=== PATIENT | female | born 1930 | race Caucasian/White ===

== ENCOUNTER 2016-11-01 23:01 | Inpatient (IN) | payer OTHER ==
[2016-11-01] MEDS ORDERED: NS 1,000 ML IV ONE (23:08)
[2016-11-01] MEDS ORDERED: NS 500 ML IV ONE (23:14)
--- NOTE | 2016-11-01 23:27 | PROVIDER DOCUMENTATION ---
HPI-Syncope/Dizziness - General Chief Complaint: Syncope Stated Complaint: syncope Time Seen by Provider: 11/01/16 23:07 Source: patient, EMS Allergies/Adverse Reactions: Patient Allergies Allergy/AdvReac Type Severity Reaction Status Date / Time No Known Allergies Allergy Verified 11/01/16 23:14 Home Medications: [place]-3 Fatty Acids [Fish Oil] 2 DAILY 01/24/13 Aspirin 81 mg PO DAILY 12/25/13 Donepezil HCl 10 mg PO BID 11/01/16 Escitalopram [Lexapro] 10 mg PO DAILY 11/01/16 Losartan/Hctz [Hyzaar 50/12.5 mg] 1 each PO BID 11/01/16 Meloxicam 7.5 mg PO DAILY 11/01/16 Memantine HCl [Namenda Xr] 28 mg PO DAILY 11/01/16 - History of Present Illness-Syncope/Dizzy Nature of Presenting Problem: 86 yo F presents to ER via EMS after a syncopal episode prior to arrival. Pt states she passed out after using the bathroom [employer]. EMS states she vomited once. Pt states she feels fine now, denies pain and wants to go home. Onset/Duration: reports: just prior to arrival Timing: reports: gone now Location of injury. (If syncope resulted in an injury.): reports: none Current Symptoms: reports: none/feels normal Review of Systems - Adult - REVIEW OF SYSTEMS - ADULT Constitutional: denies: chills, fever Eyes: reports: no symptoms reported Ears, Nose, Mouth & Throat: reports: no symptoms reported Cardiovascular: denies: chest pain, palpitations Respiratory: denies: cough, shortness of breath Gastrointestinal: reports: no symptoms reported Genitourinary: reports: no symptoms reported Musculoskeletal: reports: no symptoms reported Integumentary: reports: no symptoms reported Neurological: reports: syncope. denies: slurred speech Psychiatric: reports: no symptoms reported Endocrine: reports: no symptoms reported Hematologic/Lymphatic: reports: no symptoms reported Allergic/Immunologic: reports: no symptoms reported All Other Systems: Reviewed and Negative Past History - Adult - PAST MEDICAL HISTORY-ADULT Review of Records: reports: Old Records Reviewed, Nursing Assessment Review, Medications Reviewed - IMMUNIZATION STATUS Childhood Immunizations: See Nurse Assessment Flu Vaccine: See Nurse Assessment Physical Exam-General - PHYSICAL EXAM-ADULT Initial Vital Signs Reviewed: Yes - CONSTITUTIONAL General Appearance: appears well, alert - EYES Eyes: PERRL/EOMI, pink conjunctivae - HEAD, EARS, NOSE, MOUTH & THROAT HENMT: normocephalic/atraumatic, moist mucous membranes - NECK Neck: non-tender, full range of motion - RESPIRATORY Respiratory: chest non-tender, lungs clear - CARDIOVASCULAR Cardiovascular: normal peripheral pulses, regular rate, rhythm - MUSCULOSKELETAL Extremity: normal range of motion, normal gait Progress - PLAN OF CARE/RESULTS Progress/Plan/Lab Results: Laboratory Tests 11/01/16 11/01/16 11/01/16 23:45 23:45 23:45 WBC 14.41 H RBC 3.97 L Hgb 12.4 Hct 38.9 MCV 98.0 MCH 31.2 H MCHC 31.9 L RDW Std Deviation 13.2 Plt Count 295 MPV 9.8 Immature Gran % (Auto) 0.3 Neut % (Auto) 87.3 H Lymph % (Auto) 4.1 L [place] % (Auto) 8.0 Eos % (Auto) 0.2 Baso % (Auto) 0.1 Immature Gran # (Auto) 0.04 Neut # (Auto) 12.59 H Lymph # (Auto) 0.59 L [place] # (Auto) 1.15 H Eos # (Auto) 0.03 Baso # (Auto) 0.01 Sodium 135 L Potassium 4.5 Chloride 98 Carbon Dioxide 27 Anion Gap 10 BUN 38 H Creatinine 1.4 H Estimated GFR/1.73 m2 36 BUN/Creatinine Ratio 27 Glucose 169 H Calculated Osmolality 283 Calcium 9.3 Magnesium 1.8 Total Bilirubin 0.50 AST 16 ALT 12 Alkaline Phosphatase 89 Troponin T Total Protein 7.6 Albumin 4.2 Globulin 3.0 Albumin/Globulin Ratio 1.0 Lipase 11/01/16 11/01/16 23:45 23:45 WBC RBC Hgb Hct MCV MCH MCHC RDW Std Deviation Plt Count MPV Immature Gran % (Auto) Neut % (Auto) Lymph % (Auto) [place] % (Auto) Eos % (Auto) Baso % (Auto) Immature Gran # (Auto) Neut # (Auto) Lymph # (Auto) [place] # (Auto) Eos # (Auto) Baso # (Auto) Sodium Potassium Chloride Carbon Dioxide Anion Gap BUN Creatinine Estimated GFR/1.73 m2 BUN/Creatinine Ratio Glucose Calculated Osmolality Calcium Magnesium Total Bilirubin AST ALT Alkaline Phosphatase Troponin T < 0.010 Total Protein Albumin Globulin Albumin/Globulin Ratio Lipase 607 H Orders Category Date Time Status ABDOMEN/PELVIS W/O CONTRAST [CT] Stat Exams 11/02/16 00:43 Taken CBC WITH ELECTRONIC DIFF [HEME] Stat Lab 11/01/16 23:45 Completed CMP [COMPREHENSIVE METABOLIC PANEL] [CHEM] Stat Lab 11/01/16 23:45 Completed LIPASE [CHEM] Stat Lab 11/01/16 23:45 Completed MAGNESIUM [CHEM] Stat Lab 11/01/16 23:45 Completed TROPONIN T Stat Lab 11/01/16 23:45 Completed 0.9% Sodium Chloride Inj [Ns] 1,000 ml Med 11/01/16 23:08 Discontinued IV 999 mls/hr 0.9% Sodium Chloride Inj [Ns] 500 ml Med 11/01/16 23:14 Discontinued IV 999 mls/hr Ondansetron [Zofran] Med 11/02/16 00:47 Discontinued 4 mg IV NOW ONE EKG [EKG] Stat Ther 11/02/16 01:32 Ordered Vital Signs Temp Pulse Resp BP Pulse Ox 11/02/16 01:46 61 16 125/62 96 11/02/16 01:31 68 23 146/79 11/01/16 23:04 98 F 62 18 135/052 95 No Known Allergies Allergy (Verified 11/01/16 23:14) [place]-3 Fatty Acids [Fish Oil] 2 DAILY 01/24/13 Metoprolol Succinate E.r. [Toprol Xl] 50 mg PO DAILY #0 tablet 01/26/13 SIMVAstatin [Zocor] 40 mg PO DAILY #0 tablet 01/26/13 Aspirin 81 mg PO DAILY 12/25/13 Donepezil HCl 10 mg PO BID 11/01/16 Escitalopram [Lexapro] 10 mg PO DAILY 11/01/16 Losartan/Hctz [Hyzaar 50/12.5 mg] 1 each PO BID 11/01/16 Meloxicam 7.5 mg PO DAILY 11/01/16 Memantine HCl [Namenda Xr] 28 mg PO DAILY 11/01/16 Laboratory 11/01/16 11/01/16 11/01/16 23:45 23:45 23:45 WBC RBC Hgb Hct MCV MCH MCHC RDW Std Deviation Plt Count MPV Immature Gran % (Auto) Neut % (Auto) Lymph % (Auto) [place] % (Auto) Eos % (Auto) Baso % (Auto) Immature Gran # (Auto) Neut # (Auto) Lymph # (Auto) [place] # (Auto) Eos # (Auto) Baso # (Auto) Sodium Potassium Chloride Carbon Dioxide Anion Gap BUN Creatinine Estimated GFR/1.73 m2 BUN/Creatinine Ratio Glucose Calculated Osmolality Calcium Magnesium 1.8 Total Bilirubin AST ALT Alkaline Phosphatase Troponin T < 0.010 Total Protein Albumin Globulin Albumin/Globulin Ratio Lipase 607 H 11/01/16 11/01/16 23:45 23:45 WBC 14.41 H RBC 3.97 L Hgb 12.4 Hct 38.9 MCV 98.0 MCH 31.2 H MCHC 31.9 L RDW Std Deviation 13.2 Plt Count 295 MPV 9.8 Immature Gran % (Auto) 0.3 Neut % (Auto) 87.3 H Lymph % (Auto) 4.1 L [place] % (Auto) 8.0 Eos % (Auto) 0.2 Baso % (Auto) 0.1 Immature Gran # (Auto) 0.04 Neut # (Auto) 12.59 H Lymph # (Auto) 0.59 L [place] # (Auto) 1.15 H Eos # (Auto) 0.03 Baso # (Auto) 0.01 Sodium 135 L Potassium 4.5 Chloride 98 Carbon Dioxide 27 Anion Gap 10 BUN 38 H Creatinine 1.4 H Estimated GFR/1.73 m2 36 BUN/Creatinine Ratio 27 Glucose 169 H Calculated Osmolality 283 Calcium 9.3 Magnesium Total Bilirubin 0.50 AST 16 ALT 12 Alkaline Phosphatase 89 Troponin T Total Protein 7.6 Albumin 4.2 Globulin 3.0 Albumin/Globulin Ratio 1.0 Lipase - EKG 1 Time of EKG reading by physician:: 01:25 EKG Read and Signed by:: Bertrand Flowers EKG Interpretation (*Must complete 3 of following elements*): Abnormal Rate: 62 Rhythm: NSR [place]: left QRS: LBB CT Interval: normal ST Wave: normal Comments: abnormal - CT/MRI 1 CT Study: Abdomen, Pelvis Impression: Abnormal CT Results: minor diverticulitis in the lower left colon - CONSULTS/PCP/HOSPITALIST Notification #1 *Consult/PCP/Hospitalist*: Dr. Crawford Time Discussed: 02:08 Reason/Comments: call to admit Consult Disposition: Admit Departure - Departure Time of Disposition Order: 02:05 DIAGNOSIS: Acute diverticulitis Acute pancreatitis Qualifiers: Pancreatitis type: unspecified pancreatitis type Acute pancreatitis complication: unspecified Qualified Code(s): K85.90 - Acute pancreatitis without necrosis or infection, unspecified Disposition: ADMITTED INPATIENT 09 Certified Medical Emergency: Emergent Condition: Good Referrals: Gomez Guzman, [Primary Care Provider] - Attestation - Scribe Verification/Attestation Scribe:: Honorio Esparza Acting as Scribe for:: Bertrand Flowers Scribe documention review:: This chart was documented by a scribe and accurately reflects the service the provider performed and the decisions made by the provider.
[2016-11-02 00:15] LABS: BASO% 0.1 % (0.0-0.8); EOS# 0.03 X1000 (0.0-0.7); EOS% 0.2 % (0.0-10.0); HEMATOCRIT 38.9 % (37.0-47.0); HEMOGLOBIN 12.4 g/dL (12.0-16.0); IMM GRAN# 0.04 X1000 (0.0-0.04); IMM GRAN% 0.3 % (0.0-0.5); LYMPH# 0.59 X1000 (1.2-3.4); LYMPH% 4.1 % (20.5-51.1); MANUAL DIFF NEEDED? NO; MCH 31.2 PG (27-31); MCHC 31.9 g/dL (33-37); MONO# 1.15 X1000 (0.11-0.59); MPV 9.8 FL (7.4-10.4); NEUT% 87.3 % (42.2-75.2); PLT 295 X1000 (130-400); RBC 3.97 XMIL (4.2-5.4)
[2016-11-02 00:18] LABS: ALBUMIN 4.2 g/dL (3.5-5.0); CALCIUM 9.3 mg/dL (8.8-10.2); POTASSIUM 4.5 mmol/L (3.5-5.1); TOTAL BILIRUBIN 0.5 mg/dL (0.20-1.00); TOTAL PROTEIN 7.6 g/dL (6.3-8.3)
[2016-11-02] MEDS ORDERED: ZOFRAN IV ONE (00:47)
[2016-11-02] MEDS ORDERED: LEVAQUIN 750 MG/D5W 150 ML IV ONE (02:22)
[2016-11-02] MEDS ORDERED: FLAGYL 500 MG/NS 100 ML IV SCH (02:30)
[2016-11-02] MEDS ORDERED: MORPHINE IV PRN (02:32)
[2016-11-02] MEDS ORDERED: PHENERGAN IV PRN (02:34)
[2016-11-02] MEDS ORDERED: SODIUM CHLORIDE 0.9% INJ ONE (02:34)
[2016-11-02] MEDS ORDERED: COMPAZINE IV PRN (02:45)
[2016-11-02] MEDS: NS 1,000 ML IV SCH ×2 (04:15→19:51)
[2016-11-02 07:06] LABS: BASO% 0.1 % (0.0-0.8); HEMATOCRIT 36.6 % (37.0-47.0); HEMOGLOBIN 11.4 g/dL (12.0-16.0); IMM GRAN# 0.03 X1000 (0.0-0.04); IMM GRAN% 0.3 % (0.0-0.5); LYMPH# 0.23 X1000 (1.2-3.4); LYMPH% 2.4 % (20.5-51.1); MANUAL DIFF NEEDED? NO; MCH 30.6 PG (27-31); MCHC 31.1 g/dL (33-37); MCV 98.4 FL (81-99); MONO# 0.42 X1000 (0.11-0.59); MONO% 4.3 % (1.7-9.3); MPV 9.8 FL (7.4-10.4); NEUT% 92.9 % (42.2-75.2); PLT 239 X1000 (130-400); RBC 3.72 XMIL (4.2-5.4)
[2016-11-02 07:13] LABS: ALBUMIN 3.4 g/dL (3.5-5.0); CALCIUM 8.3 mg/dL (8.8-10.2); TOTAL BILIRUBIN 0.5 mg/dL (0.20-1.00); TOTAL PROTEIN 6.5 g/dL (6.3-8.3)
[2016-11-02 07:41] LABS: URINE SOURCE CATH
[2016-11-02 07:58] LABS: BILIRUBIN URINE NEGATIVE (NEGATIVE); BLOOD URINE TRACE (NEGATIVE); CLARITY CLEAR (CLEAR); COLOR YELLOW; GLUCOSE URINE NEGATIVE (NEGATIVE); LEUKOCYTES URINE 2+ (NEGATIVE); NITRITE URINE NEGATIVE (NEGATIVE); PROTEIN URINE TRACE mg/dL (NEGATIVE); SP GRAVITY URINE 1.015; UROBILINOGEN URINE NORMAL
[2016-11-02 07:59] LABS: URINE CULTURE PL NEEDED? YES; URINE EPITHELIAL CELLS <10 /HPF (<10); URINE RBC <10 /HPF (<10)
[2016-11-02] MEDS ORDERED: COZAAR PO SCH (09:00)
[2016-11-02] MEDS ORDERED: HYDROCHLOROTHIAZIDE PO SCH (09:00)
--- NOTE | 2016-11-02 09:33 | HISTORY AND PHYSICAL ---
CHIEF COMPLAINT: She was in the bathroom feeling nauseated and began to vomit and passed out. The daughter was in the bathroom with her and caught her before she made it to the floor. HISTORY OF PRESENTING ILLNESS: This is an 86-year-old female who presents to [facility] after she was complaining of some nausea with vomiting. Apparently, had went to the bathroom to throw up. The daughter was by her side. When she went to throw up, her knees buckled and she was passing out, and the daughter caught her and brought her to the emergency room for evaluation. Once she arrived, she stated she was feeling better. Laboratory data showed a white blood cell count of 14.41. Lipase was 607. Urinalysis showed 2+ white blood cells and 4+ bacteria. CT of the abdomen was done and per ER physician documentation showed some minor diverticulitis in the lower left colon. She was admitted for further evaluation and treatment. PAST MEDICAL HISTORY: Hypertension, dementia, hyperlipidemia, coronary artery disease. PAST SURGICAL HISTORY: CABG and pacemaker placement. FAMILY HISTORY: Noncontributory. SOCIAL HISTORY: She currently resides at [place]. Denies any tobacco, alcohol, or illicit drug use. ALLERGIES: She has no known drug allergies. HOME MEDICATIONS: She takes aspirin 81 mg p.o. daily, Donepezil 10 mg p.o. b.i.d., Lexapro 10 mg p.o. daily, losartan/hydrochlorothiazide 50/12.5 p.o. b.i.d., meloxicam 7.5 mg p.o. daily will be held, Namenda XR 28 mg p.o. daily, metoprolol 50 mg p.o. daily, fish oil 500 mg 2 p.o. daily will be held, Zocor 40 mg p.o. daily. LABORATORY DATA: Showed a white blood cell count of 14.41, hemoglobin 12.4, hematocrit 38.9, platelets 295,000. Sodium 135, potassium 4.5, chloride 98, CO2 27, BUN of 38, creatinine of 1.4 which is at her baseline with some underlying chronic kidney disease, glucose 169. Lipase 607. Urinalysis showed negative nitrites but 2+ white blood cells and 4+ bacteria. CT of the abdomen and pelvis per ER physician documentation showed minor diverticulitis in the left lower colon. REVIEW OF SYSTEMS: She denied any fever, chills, blurred vision, dizziness, chest pain, coughing, shortness of breath. She had some mild abdominal discomfort. There was generalized nausea, vomiting. Denied any constipation or diarrhea, burning or hurting with urination. PHYSICAL EXAMINATION: VITAL SIGNS: On arrival, she had a temperature of 98 degrees, pulse 62, respirations 18, blood pressure 135/52, saturating 95% on room air. GENERAL: This is an 86-year-old, female who is lying in the bed and answers questions appropriately. HEENT: Normocephalic and atraumatic. Pupils are equal, round, and reactive to light. The extraocular movements are intact. The oropharynx and nares are clear. NECK: Supple. LUNGS: Clear to auscultation bilaterally with equal lung expansion and chest wall movement. HEART: With regular rate and rhythm. No murmurs, rubs, or gallops. ABDOMEN: Soft, nontender, nondistended. Bowel sounds were present x4 quadrants. EXTREMITIES: No clubbing, cyanosis, or edema. NEUROLOGICAL: The cranial nerves 2-12 are grossly intact. ASSESSMENT: 1. Diverticulitis. 2. Syncope. 3. Urinary tract infection. 4. Pancreatitis. PLAN: She was admitted to the medical unit at [facility]. Placed on NPO status initially but it is noted this morning that her lipase is down to 111 so we will give her a healthy heart diet this morning and see how she tolerates it. We will check an echocardiogram and a carotid ultrasound. Urine culture is pending. We will continue her Levaquin 750 mg IV q.24, Flagyl 500 mg IV q.8. Continue her home medicines as previously identified. Morphine 2 mg IV q.2 hours p.r.n. and normal saline at 100 mL an hour. Will recheck a CBC and a BMP in the a.m. Dictated by JANET Jc for Hayden Munoz MD will check ruq us in am amd if stable dc on oral abx for 10-14 days otherwise agree with above, i have examined the pt APENOT MTDD
[2016-11-02] MEDS: ARICEPT PO SCH ×2 (09:56→20:03)
[2016-11-02] MEDS: NAMENDA XR PO SCH (09:57)
[2016-11-02] MEDS: LEXAPRO PO SCH (09:57)
[2016-11-02] MEDS: TOPROL XL PO SCH (09:57)
[2016-11-02] MEDS: FLAGYL 500 MG/NS 100 ML IV SCH ×2 (11:56→19:50)
--- NOTE | 2016-11-02 12:33 | Diag Imaging Result Document ---
PROCEDURE NAME: ABDOMEN/PELVIS W/O CONTRAST - 11/02/2016 CT ABDOMEN AND PELVIS WITHOUT CONTRAST: COMPARISON: None available. FINDINGS: There is subsegmental atelectasis and/or scarring at the lung bases. There is cardiomegaly. There is a small hiatal hernia. The kidneys are grossly unremarkable. There is no hydronephrosis. The pancreas is grossly unremarkable. No discrete peripancreatic inflammatory changes are identified. The gallbladder is grossly unremarkable. There is diverticulosis coli with focal mild inflammatory changes emanating from a short segment of the proximal sigmoid colon where there are multiple diverticula. This is consistent with mild acute diverticulitis. There is no discrete abscess or free air to indicate perforation. There are fluid-filled loops of small bowel throughout the abdomen with only mild distention. They are nonspecific but are probably related to ileus. There is a calcification involving the uterine wall suggesting a likely small fibroid. The remainder of the solid viscera of the abdomen and pelvis and the remainder of the GI tract is essentially unremarkable. There is aortic atherosclerotic calcification but no evidence of aneurysm. IMPRESSION: 1. Findings consistent with mild sigmoid colonic diverticulitis with no sign of perforation at this time. 2. Fluid-filled loops of small bowel that are mildly distended, likely relating to ileus. 3. Other incidental/nonacute findings detailed above.
[2016-11-02] MEDS: COZAAR PO SCH (20:00)
[2016-11-02] MEDS ORDERED: ZOCOR PO SCH (21:00)
[2016-11-03] MEDS: NS 1,000 ML IV SCH ×2 (00:24→13:17)
[2016-11-03] MEDS ORDERED: LEVAQUIN 750 MG/D5W 150 ML IV SCH (02:00)
[2016-11-03] MEDS: FLAGYL 500 MG/NS 100 ML IV SCH ×2 (04:26→13:17)
[2016-11-03 07:07] LABS: BASO% 0.2 % (0.0-0.8); EOS# 0.03 X1000 (0.0-0.7); EOS% 0.6 % (0.0-10.0); HEMATOCRIT 34.9 % (37.0-47.0); HEMOGLOBIN 10.8 g/dL (12.0-16.0); IMM GRAN# 0.04 X1000 (0.0-0.04); IMM GRAN% 0.8 % (0.0-0.5); LYMPH# 1.06 X1000 (1.2-3.4); LYMPH% 20.4 % (20.5-51.1); MANUAL DIFF NEEDED? YES; MCH 30.3 PG (27-31); MCHC 30.9 g/dL (33-37); MONO# 1.09 X1000 (0.11-0.59); MPV 10.1 FL (7.4-10.4); PLT 227 X1000 (130-400); RBC 3.56 XMIL (4.2-5.4)
[2016-11-03 07:19] LABS: CALCIUM 7.9 mg/dL (8.8-10.2); POTASSIUM 3.5 mmol/L (3.5-5.1)
[2016-11-03 07:34] LABS: BANDS 3 % (0-1); BASO 1 % (0-1); LYMPHS 20 % (21-51); MONO 22 % (1-9); NRBC 1 % (0-0)
--- NOTE | 2016-11-03 08:19 | EKG Report ---
Test Performed on : 11/02/2016 01:25:21 AM Test Reason : ER Blood Pressure : / mmHG Vent. Rate : 062 BPM Atrial Rate : 062 BPM P-R Int : 200 ms QRS Dur : 142 ms QT Int : 458 ms P-R-T Axes : 036 -39 001 degrees QTc Int : 464 ms Normal sinus rhythm. Left axis deviation Left bundle branch block Abnormal ECG When compared with ECG of 25-DEC-2013 16:09, Sinus rhythm. has replaced Electronic atrial pacemaker Inverted T waves have replaced nonspecific T wave abnormality in Inferior leads Unconfirmed Result
[2016-11-03 09:53] LABS: AMYLASE 72 U/L (20-200); LIPASE 59 U/L (13-60)
[2016-11-03] MEDS: COZAAR PO SCH (10:12)
[2016-11-03] MEDS: ARICEPT PO SCH (10:12)
[2016-11-03] MEDS: TOPROL XL PO SCH (10:12)
[2016-11-03] MEDS: LEXAPRO PO SCH (10:12)
[2016-11-03] MEDS: NAMENDA XR PO SCH (10:13)
--- NOTE | 2016-11-03 10:24 | Diag Imaging Result Document ---
PROCEDURE NAME: US GB < RUQ (LIMITED) - 11/03/2016 ULTRASOUND GALLBLADDER: FINDINGS: The gallbladder is visualized and demonstrates no abnormalities. There is no evidence of gallstones. The technologist reports negative sonographic Edge's sign. The common bile duct is normal caliber at 4 mm. There are no abnormalities of the liver, right kidney, or visualized portions of the pancreas identified. Abdominal aorta appears normal caliber. IMPRESSION: No visible abnormality. No evidence of gallstones.
[2016-11-03] MEDS ORDERED: MORPHINE IV PRN (11:15)
[2016-11-03 11:29] VITALS: BP 146/52
--- NOTE | 2016-11-03 21:12 | DISCHARGE SUMMARY ---
ADMISSION DATE: 11/02/2016 DISCHARGE DATE: 11/03/2016 DIAGNOSES: 1. Syncope. 2. Diverticulitis. 3. Pancreatitis. 4. Hypertension. 5. Dementia. DIAGNOSTICS: 11/02/2016: CT of the abdomen and pelvis without contrast revealed findings consistent with sigmoid colonic diverticulitis with no sign of perforation at this time, fluid- filled loops of small bowel that are mildly distending likely relating to ileus. 11/03/2016: Abdominal ultrasound revealed no visible abnormality, no evidence of gallstones. Microbiology: Urine culture is pending. HOSPITAL COURSE: Ms. Elizabeth presented to the emergency room after having a syncopal episode following nausea and vomiting. This was witnessed by her daughter. On arrival she felt better. She has had no further episodes. She was found have a white count of 14 with a lipase of 607. CT of the abdomen revealed diverticulitis. She was treated with Compazine as well as Flagyl and Levaquin IV. She received IV hydration. She has had no further nausea or vomiting. She has eaten a GI soft diet with no difficulty and as stated before her ultrasound was negative. Her hydrochlorothiazide was discontinued due to her pancreatitis. Of note she did have a lipase of 607 on admission, it was 111 yesterday and today it is 59. Amylase is 72 today. She did have a white count of 14, it is 5 today. She has been afebrile. DISCHARGE EXAMINATION: Cardiovascular: Regular rate and rhythm. S1 and S2 appreciated. Pulmonary: Breath sounds are clear. No increased work of breathing noted. Gastrointestinal: Abdomen is soft, nontender, nondistended with bowel sounds in all 4 quadrants. Extremities: No clubbing, cyanosis, or edema. Calves are nontender. Pulses are palpable x4. Neurologic: She is alert and oriented. DISCHARGE VITAL SIGNS: Blood pressure is 127/47 with a heart rate of 67, respirations are 16, temperature is 98 degrees oral with room air sats 95-97%. DISCHARGE MEDICATIONS: 1. Lexapro 10 daily. 2. Meloxicam 7.5 daily. 3. Namenda XR 28 daily. 4. Aricept 10 b.i.d. 5. Zocor 40 daily. 6. Cozaar 50 mg b.i.d. 7. Toprol-XL 50 mg daily. 8. Flagyl 500 mg q.8 hours x10 days. 9. Levaquin 500 mg p.o. x10 days. 10. She well discontinue hydrochlorothiazide. FOLLOWUP: She is to follow up with Dr. Gomez Guzman in 2-3 weeks, sooner if needed. DISCHARGE ACTIVITY: As tolerated. DISCHARGE DIET: Soft. DISPOSITION: She is being discharged home in stable condition with family members. TOTAL TIME SPENT ON DISCHARGE: Greater than 30 minute discharge from 11:00 to 11:30. Dictated by JANET Rene for Hayden Munoz MD
--- NOTE | 2016-11-05 07:42 | Extremity Venous Study ---
PROCEDURE NAME: Carotid Ultrasound - 11/03/2016 CAROTID FLOW STUDIES: FINDINGS: There is mild atherosclerotic plaquing at the right carotid bulb. Maximum systolic velocity in the right internal carotid artery is 91 cm/sec, maximal diastolic velocity is 19 cm/sec. The right internal to common carotid artery ratio is 1.04. The flow velocities and ratio are consistent with 0%-39% stenosis in the right internal carotid artery. The right vertebral artery demonstrates antegrade flow. There is some intimal thickening in the left carotid system. Maximum systolic velocity in the left internal carotid artery is 84 cm/sec, maximal diastolic velocity is 23 cm/ sec. The left internal to common carotid artery systolic velocity ratio is 0.98. The flow velocities and ratio are consistent with 0%-39% stenosis in the left internal carotid artery. The left vertebral artery demonstrates antegrade flow. IMPRESSION: No evidence of hemodynamically significant stenosis in the right nor the left carotid system. [facility]
--- NOTE | 2016-11-06 17:04 | ECHO REPORT ---
ORDER DATE: 11/02/2016 INDICATIONS: Syncope. FINDINGS: 1. The right atrium appears normal in size. 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 No evidence of shunting. 2. Mild to moderate tricuspid regurgitation. RV systolic pressure of 47. 3. Normal RV size and systolic function. 4. Mild pulmonic insufficiency. 5. Normal left atrial size at 3.6 cm. 6. No mitral valve prolapse. Mild mitral regurgitation. 7. Normal LV size with no evidence of left ventricular hypertrophy. Normal LV systolic function. The estimated EF is 60-65% with normal wall motion. 8. The aortic valve opens well. No evidence of stenosis or insufficiency. 9. The aorta appears normal in visualized segments. 10. No pericardial effusion seen.
== END 2016-11-03 13:30 | DRG 391 ==
LOC: P.ED 23:01 → P.MEDSURG 11-02 02:46
PROVIDERS: ATTEND Internal Medicine
DX: K57.32 Diverticulitis of large intestine without perforation or abscess without bleeding (principal); K85.90 Acute pancreatitis without necrosis or infection, unspecified; F03.90 Unspecified dementia, unspecified severity, without behavioral disturbance, psychotic disturbance, mood disturbance, and anxiety; N39.0 Urinary tract infection, site not specified; Z95.1 Presence of aortocoronary bypass graft; E78.5 Hyperlipidemia, unspecified; I25.10 Atherosclerotic heart disease of native coronary artery without angina pectoris; Z95.0 Presence of cardiac pacemaker; Z79.899 Other long term (current) drug therapy; Z79.1 Long term (current) use of non-steroidal anti-inflammatories (NSAID); Z79.82 Long term (current) use of aspirin; I12.9 Hypertensive chronic kidney disease with stage 1 through stage 4 chronic kidney disease, or unspecified chronic kidney disease; N18.9 Chronic kidney disease, unspecified
CPT/HCPCS: 74176; 76705; 80048; 80053; 81001; 82150; 83690; 83735; 84484; 85025; 87088; 93005; 93306; 93880; 96365; 96375; J2405; J7030; J7040; S0030

== ENCOUNTER 2017-05-28 15:26 | Inpatient (IN) ==
[2017-05-28] MEDS ORDERED: ZOFRAN IV PRN (15:28)
[2017-05-28 18:47] LABS: URINE MICRO REVIEW NEEDED? NO; URINE SOURCE CATH
[2017-05-28 18:55] LABS: BILIRUBIN URINE NEGATIVE (NEGATIVE); BLOOD URINE NEGATIVE (NEGATIVE); COLOR YELLOW; GLUCOSE URINE NEGATIVE (NEGATIVE); LEUKOCYTES URINE SMALL (NEGATIVE); NITRITE URINE NEGATIVE (NEGATIVE); PH URINE 5.5; PROTEIN URINE 30 mg/dL (NEGATIVE); SP GRAVITY URINE 1.024; TURBIDITY URINE CLEAR (CLEAR); UR EPITHELIAL CELLS <10 /HPF (<10); URINE BACTERIA 4+ /HPF; URINE CULTURE NEEDED? YES; URINE RBC <10 /HPF (<10); URINE WBC <10 /HPF (<10); UROBILINOGEN URINE NORMAL (NORMAL)
[2017-05-28] MEDS: NS 1,000 ML IV SCH (18:56)
[2017-05-28] MEDS: LOVENOX SUBQ SCH (18:57)
[2017-05-28 19:10] LABS: AMYLASE 117 U/L (20-200); LIPASE 118 U/L (13-60)
--- NOTE | 2017-05-28 19:12 | HISTORY AND PHYSICAL ---
ATTENDING PHYSICIAN: Dr. Gomez Guzman. ADMITTING PHYSICIAN: Dr. Gomez Guzman. CHIEF COMPLAINT: Explosive diarrhea with left lower quadrant pain, hypersomnolence and early sacral decubital breakdown secondary to diarrhea. HISTORY OF PRESENT ILLNESS: Ms. Elizabeth is a pleasant 86-year-old patient whose past medical history includes, but is not limited to goiter, diabetes managed with diet and lifestyle, vitamin B12 deficiency, dyslipidemia, dementia, hypertension, coronary disease, diverticular disease, osteoarthritis of the knees, osteoporosis and status post pacemaker placement for symptomatic bradycardia in January 2013. She was admitted to the Internal Medicine Service October 2016 for nausea, vomiting and syncope with a diagnosis of acute diverticulitis. She was last seen in the Internal Medicine Clinic in February for annual exam. She presents to the Internal Medicine Clinic for evaluation for hypersomnolence, as well as complaints of 2 months of what is described as diarrhea which appears to have escalated over the past 3-4 weeks. It is described as explosive and uncontrollable. She has been soiling the beds, soiling the furniture, soiling the cars, it is unpredictable and uncontrollable. There is no report of fevers or chills. The family is wondering whether any of the medication she is on could exacerbate her symptoms. The daughter states also for 2+ months, increased neck laxity with patient reporting that her neck hurts and that her head feels heavy. She is unable to hold her head upright when she walks and she continues to decline clinically with some gait issues and generalized weakness. She is considered for admission secondary to accelerated/explosive uncontrollable diarrhea and early cutaneous breakdown, as well as nonspecific abdominal pain localizing to the left lower quadrant. ALLERGIES: Hydrochlorothiazide. MEDICATIONS ON ADMISSION: Fish oil 1000 mg once daily. COQ10 100 mg once daily. Low strength aspirin 81 mg once daily. Calcium with vitamin D 600/200, 1 p.o. daily. Citalopram 10 mg once daily. Simvastatin 40 mg once daily. Meloxicam 7.5 mg once daily. Exelon patch 13.3 mg q. 24 hours. Metoprolol 50 mg once daily. Benazepril 10 mg b.i.d. Losartan 25 mg once daily. MEDICATIONS THAT WILL BE DISCONTINUED AT TIME OF ADMISSION: Including the Exelon patch and benazepril. FAMILY HISTORY: Father in the secondary to [place]. Mother 1952 secondary to cardiac issues. Brother in the 1960s secondary to rheumatoid arthritis. Sister at 59 secondary to cancer, unknown type. Sister at 72 secondary to heart related issues. Sister 72 secondary to old age. Patient is the only surviving member of her family. SOCIAL HISTORY: The patient is a nonsmoker and nondrinker. She is with 4 children, 3 daughters and 1 son. She has a total of 9 grandchildren and 5 great grandchildren. 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 PAST SURGERIES: Appendectomy in 1957. Pacemaker in 2012. Tubal ligation in 1957. Right elbow surgery in 1980. Coronary bypass in 2002. Right-sided cataract in 2003. Left- sided cataract in 2009. Last colonoscopy in January 2007. Findings consistent with internal hemorrhoids, polyps and diverticular disease. Patient has never had an EGD. Historical CT scan of the abdomen and pelvis dated 06/02 for left lower quadrant pain demonstrating a small left-sided ovarian cyst and evidence of peripheral vascular disease. A recent CT scan demonstrating evidence of sigmoid diverticulitis with no sign of perforation and fluid filled loops of small bowel, mildly distended, perhaps related to ileus. This CT scan noted to be 11/02/2016. A CT scan of the cervical spine is noted in October 2016 as well. A questionable fracture of the odontoid process is demonstrated and perhaps seen on previous study dated 11/14/2015. There is some obscuring secondary to patient's dental work. The odontoid appears to be more displaced to the right when compared to previous examination , this raising concern for possible progression since last evaluation in October. Cardiac echo in October as well demonstrating elevated PA pressures. Moderate TR, mild MR and what appears to be and interatrial septal aneurysm without evidence of shunting. REVIEW OF SYSTEMS: With discharge summary 11/03/2016 consistent with syncope, diverticulitis, pancreatitis, hypertension, and dementia. The patient was discharged at that time with Flagyl and Levaquin, and then was subsequently seen in the Internal Medicine Clinic approximately 5 months later for annual exam. We did review the particulars regarding her admission in October; however, the CT scan of the cervical spine and head was not noted and was not reviewed. Discharge diagnosis fails to demonstrate evidence of CT scan findings or mention of particulars noted within the CT report. Review of systems is otherwise unremarkable. PHYSICAL EXAMINATION: VITAL SIGNS: Office blood pressure 108/58, pulse at 73, saturating 92% on room air. Temperature at 97.6 degrees, patient weighing 120 pounds with a BMI of 26.90. HEENT: Unremarkable with the exception of forward flexion/regional cervical extension of the neck. Patient is able to raise her head, but a position of comfort is with the neck in a forward flexion. CARDIOVASCULAR: Regular rate and rhythm. There is a systolic murmur appreciated without radiation. LUNGS: Clear. ABDOMEN: Soft with tenderness without rebound or guarding in the left lower quadrant. Hyperactive bowel sounds are suggested. LOWER EXTREMITIES: Without edema or cyanosis. Patient's gluteal region is observed at the family's request. She does have bilateral gluteal fold erythema measuring approximately 4 cm x 4 cm. NEUROLOGICAL: Cranial nerves 2-12 are grossly intact. Patient with a long- term cognitive deficiencies, mental mini status exam is not performed at this time. She is, however, somewhat hypersomnolent. LABORATORY: Obtained on admission including a CMP, TSH and T4 and a magnesium as well as a urine culture with urinalysis. Additional stool studies include C. difficile toxin, Dixfield like agent, fecal leukocytes, fecal blood, stool culture and these are pending at the time of dictation. Additional CT scan of the abdomen and pelvis is ordered, and the results are forthcoming. IMPRESSION: An 87-year-old female with recent admission for diverticular disease, now complicated by accelerated history of diarrhea with explosive uncontrolled nature and worsening left lower quadrant pain, hypersomnolence, neck pain with questionable cervical neck laxity and early sacral decubitus. Early skin breakdown secondary to diarrhea. Based on the patient's prolonged history and recent acceleration of GI symptoms, it is felt that further diagnostic workup, including laboratory and a CT scan are indicated. Patient remains at risk for dehydration secondary to volume loss. She also remains at risk for electrolyte imbalances secondary to voluminous and repetitive episodes of diarrhea. I am uncertain as to whether the hypersomnolence is medication mediated or otherwise and I am concerned with a history of fall and neck trauma and questionable abnormal CT scan in October that there might be a progression of the odontoid fracture as previously mentioned. We will obtain some labs as mentioned above and follow up in the morning with regards to overnight events. The daughters understand the initial course of treatment and plan. No further issues at this time. Note is dictated on the evening of admission. Total time in office (evaluation), pre-admit EMR admission/orders (from office) , post-admission evening rounds and assessment (at the bedside with family members) 1 hour and 45 minutes. cc: DO GI Pineda
[2017-05-28 19:14] LABS: ALBUMIN 3.8 g/dL (3.5-5.0); CALCIUM 10.3 mg/dL (8.8-10.2); POTASSIUM 3.6 mmol/L (3.5-5.1); TOTAL BILIRUBIN 0.26 mg/dL (0.20-1.00)
--- NOTE | 2017-05-28 21:53 | Diag Imaging Result Doc PS360 ---
EXAM: CERVICAL SPINE W/O CONTRAST INDICATION: c2 fracture in 2016? 2017? COMPARISON: None. FINDINGS: There is a type II odontoid fracture consistent with the history. It is unfused. However, there is some sclerosis at the fracture margins indicating that it is not acute. There is no subluxation of the fracture fragment. No other discrete fracture is identified. Otherwise, there are endplate and facet degenerative changes. There is loss of disc space height and marginal osteophyte formation at several levels. Degenerative changes are causing minimal anterolisthesis of C3 on C4 and C6 on C7. These degenerative changes are causing some degree of central canal and neuroforaminal narrowing at several levels but it appears chronic. Review of the surrounding soft tissues reveals multiple thyroid nodules, some of which are densely calcified. Statistically this most likely represents multinodular goiter. There is atherosclerotic calcification at the carotid bifurcations. Surrounding soft tissues are essentially unremarkable, otherwise. IMPRESSION: 1.Type II odontoid fracture consistent with a history exhibiting sclerosis at the unfused edges indicating that it is not acute. Please correlate with the patient's clinical history. 2.Multilevel degenerative changes. Electronically signed by Luis Delgadillo 05/28/2017 9:51 PM
--- NOTE | 2017-05-28 22:03 | Diag Imaging Result Doc PS360 ---
EXAM: ABDOMEN/PELVIS W/O CONTRAST INDICATION: Diarrhea, LLQ pain and AMS TECHNIQUE: COMPARISON: 11/02/2016 FINDINGS: There is scarring and/or subsegmental atelectasis at the lung bases that is similar to the previous study. The liver, gallbladder, spleen, adrenal glands, and pancreas are unremarkable. The kidneys are grossly unremarkable. There is a Dickson catheter in the urinary bladder and the bladder is nondistended. There is fairly extensive descending and sigmoid colonic diverticulosis. There is no definite diverticulitis. There is no evidence of bowel obstruction. No focal inflammatory changes, free abdominal gas, or free fluid is appreciated. There is stable aortoiliac atherosclerotic disease. There are lumbar spine degenerative changes. The bony structures are grossly intact. IMPRESSION: 1.Fairly extensive diverticulosis coli but no definite sign of diverticulitis. 2.Other incidental/nonacute findings detailed above. No definite acute pathology. Electronically signed by Luis Delgadillo 05/28/2017 10:01 PM
[2017-05-28] MEDS ORDERED: DESYREL PO ONE (23:01)
[2017-05-29 06:36] LABS: MANUAL DIFF NEEDED? NO
[2017-05-29 06:41] LABS: BASO% 0.1 % (0.0-0.8); EOS# 0.13 X1000 (0.0-0.7); EOS% 1.8 % (0.0-10.0); HEMATOCRIT 34.9 % (37.0-47.0); HEMOGLOBIN 11.2 g/dL (12.0-16.0); IMM GRAN# 0.02 X1000 (0.0-0.04); IMM GRAN% 0.3 % (0.0-0.5); LYMPH# 2.01 X1000 (1.2-3.4); LYMPH% 27.5 % (20.5-51.1); MCH 30.4 PG (27-31); MCHC 32.1 g/dL (33-37); MCV 94.8 FL (81-99); MONO# 0.94 X1000 (0.11-0.59); MONO% 12.9 % (1.7-9.3); MPV 10.3 FL (7.4-10.4); NEUT% 57.4 % (42.2-75.2); PLT 257 X1000 (130-400); RBC 3.68 XMIL (4.2-5.4)
--- NOTE | 2017-05-29 06:51 | PROGRESS NOTE ---
DATE: 05/29/2017 SUBJECTIVE: Hospital day #2. Indication for continued hospitalization. Acute renal failure likely due to prerenal causes secondary to volume depletion, secondary to chronic diarrhea, as well as incidental finding of C2 fracture. Orthopedic consultation prolonged her management indicated and ongoing surveillance of abnormal nondiagnostic urine, urine culture pending. EVENTS OVER THE PAST 24 HOURS: Ms. Elizabeth is being admitted from the Internal Medicine Clinic for abdominal pain and uncontrollable/explosive diarrhea, as well as neck pain. She was admitted last night for further diagnostic work up. She underwent a CT scan of the abdomen and pelvis which failed to demonstrate any evidence of acute abnormality. Only findings consistent with extensive diverticular disease but no evidence of diverticulitis, she was admitted in October for acute diverticulitis. She also has some findings consistent with aortoiliac atherosclerotic disease and advanced degenerative lumbar disease. A CT scan of the spine was obtained secondary to neck pain and cervical musculature laxity. She was noted in October, to have what appeared to be a chronic type 2 odontoid fracture with some displacement to the right; however, this was not noted or addressed on previous discharge summary. Based on the progression of neck laxity and intermittent pain, it was felt that a follow up CT scan would be indicated to rule out the presence of migration of the odontoid process. CT scan failing to demonstrate interval worsening. Again, additional incidental findings including a multinodular goiter and evidence of radiographic peripheral vascular disease based on carotid calcification. On admission we did not have the CMP for review. She was noted to have acute renal failure. BUN at 46 and creatinine at 3.0. Historical creatinine in November at 1.4 with baseline measurements between 1.2 and 1.5. This is likely volume depletion and diarrhea mediated. She was also noted to have nonspecifically elevated lipase. Calcium was also noted to be elevated as well. Urine catheterization was performed and she was noted to have 4+ bacteria and a urine culture is pending at this time. VITALS THIS MORNING,: Blood pressure 150/40, respirations at 62, temperature 98.3 degrees saturating at 94% on room air .Intake and output: 1040 in and only 50 out, putting her at a +990 for the past 12-24 hours. HEENT: Unremarkable. Cardiovascular: Regular rate and rhythm. Lungs: Sounds are distant without wheezing or rhonchi. Abdomen: Is significantly less tender this morning with hypoactive bowel sounds. Extremities: Are without edema or cyanosis. Neurological: Cranial nerves appear to be grossly intact. LABORATORIES: For this morning include a CMP which is pending at the time of dictation. CBC which is pending at the time of dictation, and additional stool studies including a C. difficile antigen and C diff toxin as well as fecal leukocytes and fecal occult blood, a stool culture and Chadwick like agent although the patient has not had any diarrhea since her admission. IMPRESSION: An 87-year-old with abdominal pain and explosive diarrhea. Patient now without diarrhea since admission. A CT scan is unremarkable for diverticulitis or other acute intra- abdominal pathologies. She has states that she is hungry this morning and was hoping to go home. Based on inability to definitively explain cause for diarrhea we will continue with further watchful waiting. Another concern would be the acute renal failure with creatinine at 3.0. A repeat CMP this morning is pending. Further impression and clinical course to follow. We will be getting the opinion of orthopedic surgeon today with regards to nonsteroidal fracture. No additional recommendations at this time. Wait Cx results Follow Creatinine D/C jane today cc: Gomez Guzman, DO ZAMORANOD
[2017-05-29 07:13] LABS: ALBUMIN 3.1 g/dL (3.5-5.0); CALCIUM 9.5 mg/dL (8.8-10.2); POTASSIUM 3.5 mmol/L (3.5-5.1); TOTAL BILIRUBIN 0.32 mg/dL (0.20-1.00)
[2017-05-29] MEDS: CALTRATE 600 + D PO SCH (09:40)
[2017-05-29] MEDS: MOBIC PO SCH (09:40)
[2017-05-29] MEDS: COZAAR PO SCH (09:40)
[2017-05-29] MEDS: TOPROL XL PO SCH (09:40)
[2017-05-29] MEDS: LEXAPRO PO SCH (09:40)
[2017-05-29] MEDS: ZOCOR PO SCH (09:40)
[2017-05-29] MEDS: ASPIRIN PO SCH (09:40)
[2017-05-29] MEDS: COENZYME Q10 PO SCH (09:41)
[2017-05-29] MEDS: NS 1,000 ML IV SCH ×2 (12:08→23:24)
[2017-05-29] MEDS ORDERED: ROCEPHIN 1 GM/NS 1 GM/50 ML IVPB IV ONE (12:32)
--- NOTE | 2017-05-29 16:16 | CONSULTATION ---
DATE OF CONSULTATION: 05/29/2017 HISTORY OF PRESENT ILLNESS: Ms. Elizabeth is an 86-year-old female who was admitted per Dr. Guzman for diarrhea and abdominal pain. Ended up getting a head CT, which showed a C2 fracture. We got a neck CT which showed a CT fracture that looks old, and so Orthopedics consulted to evaluate. She has not had any neck pain here recently, she has had no falls recently. She has no numbness or tingling in her hands, and not really any weakness in bilateral lower extremities. PAST MEDICAL HISTORY: Diabetes, B12 deficiency, hypertension, coronary artery disease, diverticular disease, osteoarthritis in her knees. PAST SURGICAL HISTORY: Appendectomy, tubal ligation, pacemaker placement 2012, coronary artery bypass 2002. SOCIAL HISTORY: She is nonsmoker and nondrinker. ALLERGIES: Hydrochlorothiazide. MEDICATIONS: Per the MAR. REVIEW OF SYSTEMS: Positive for dehydration symptoms. All other systems are essentially negative. PHYSICAL EXAMINATION: General: Well-developed, seemingly well nourished elderly female, in no acute distress. Cardiovascular: Regular rhythm. Lungs: Nonlabored breathing. Abdomen: A little bit of tenderness to palpation. Bilateral upper and lower extremity exam: She is neurovascularly intact. She has good sensation to light touch to all the fingers. Good sensation to light touch to all the toes. Seems to have 5/5 strength bilateral upper and lower extremities. IMAGING: CT scan showed what looked like a chronic C2 fracture with good overall alignment. Really no subluxation there at all either. She has a lot of degenerative changes in the neck. ASSESSMENT: Chronic C2 fracture. PLAN: I do not think this is anything new. She has not had any recent falls. No new neuro symptoms at all. And so from orthopedic standpoint, I would not recommend any surgical intervention for the C2 fracture. I would just watch it. If she starts having any symptoms at all, any neck pain, numbness, tingling, anything like that, then she is to see a spine surgeon. cc: MD Gomez Schaffer, DO
[2017-05-29] MEDS: LOVENOX SUBQ SCH (17:24)
[2017-05-29] MEDS ORDERED: MIRAPEX PO ONE (21:54)
[2017-05-29] MEDS ORDERED: ATIVAN PO ONE (21:54)
[2017-05-30 08:03] VITALS: BP 103/90
[2017-05-30] MEDS: TOPROL XL PO SCH (10:13)
[2017-05-30] MEDS: CALTRATE 600 + D PO SCH (10:13)
[2017-05-30] MEDS: LEXAPRO PO SCH (10:13)
[2017-05-30] MEDS: COENZYME Q10 PO SCH (10:13)
[2017-05-30] MEDS: MOBIC PO SCH (10:13)
[2017-05-30] MEDS: ASPIRIN PO SCH (10:13)
[2017-05-30] MEDS: COZAAR PO SCH (10:13)
[2017-05-30] MEDS: ZOCOR PO SCH (10:13)
[2017-05-30] MEDS ORDERED: CIPRO PO SCH (12:00)
--- NOTE | 2017-05-30 16:51 | DISCHARGE SUMMARY ---
ADMISSION DATE: 05/28/2017 DISCHARGE DATE: 05/30/2017 DISCHARGE DIAGNOSES: 1. Acute renal failure likely due to diarrhea, volume depletion and antihypertensives. 2. Volume depletion secondary to diarrhea, etiology queried, suspect to be medication related. 3. Urinary tract infection with Escherichia coli positive culture, valdovinos sensitivity. The patient transitioning to Cipro 250 mg twice daily for 3 days. 4. Anemia not otherwise specified with hemoglobin and hematocrit 11.2 and 34.9 to be followed up as an outpatient. 5. Chronic C2 fracture. 6. Diverticular disease without evidence of diverticulitis. 7. Acute urinary retention with more than a liter and a half out at the time of Dickson insertion. Etiology is queried. 8. Aortoiliac atherosclerotic disease/radiographic evidence of peripheral vascular disease. 9. Degenerative disease of the lumbosacral spine per abdominal CT. 10. Degenerative change of the cervical spine, type 2 odontoid fracture consistent with sclerosis at the unfused edges suggesting chronicity. 11. Incidental finding of multinodular goiter and radiographic evidence of peripheral vascular disease involving the carotid system. PROCEDURES DURING ADMISSION: Include CT scan of the abdomen and pelvis and CT scan of the spine. CONSULTATIONS: Orthopedics for long-term management recommendations for neck pain in presence of C2 fracture. HOSPITAL COURSE: The patient was admitted on the for explosive/refractory diarrhea after a recent hospitalization in October for diverticulitis and volume depletion complicated by syncope. A CT scan of the abdomen and pelvis was performed without contrast secondary to renal insufficiency. No significant findings were noted. The bladder was noted to be markedly distended. Subsequent catheter revealed output of more than 1.5 L. She was also noted during the early part of her hospitalization to be in acute renal failure with creatinine as high as 3.0. We will be holding the angiotensin receptor delfino at the time of discharge and alternate antihypertensive may be indicated. She will continue on the metoprolol as previously prescribed. Patient's creatinine began trending downward from 3 to 2.1. It was not checked on the morning of discharge. VITALS: On the morning of discharge 103/90, pulse 63, respirations at 20, temperature 98.1 degrees, saturating 94% on room air. I's and O's at 240 in and 525 out for -285. MEDICATIONS ON DISCHARGE: Including Cipro 250 twice a day for 3 days, metoprolol 50 mg once daily, simvastatin 40 mg once daily, aspirin 81 mg once daily, meloxicam 7.5 mg once daily, Lexapro 10 mg once daily, calcium vitamin D once daily, CoQ10 100 mg once daily. Medications stopped at the time of admission including losartan 25 mg once daily. It is stopped for renal insufficiency as well as hypotension. Additional medications stopped including Exelon patch and donepezil. Further medication reconciliation and review in followup appointment. DISPOSITION: The patient is anticipated to follow up in the Internal Medicine Clinic no later than of next week. The family has been instructed to call on Thursday for an appointment sometime afternoon in posthospital follow up. The son understands the course of treatment and plan. No further issues at this time. Note is dictated on the morning of discharge. cc: Gomez Guzman DO
== END 2017-05-30 12:30 | disposition home or self-care (01) ==
LOC: DIRADM 15:26 → 3N 17:41
PROVIDERS: ADMIT Internal Medicine; ATTEND Internal Medicine